=== PATIENT | female | born 1935 | race Two or more races ===

== ENCOUNTER 2024-05-19 13:47 | Emergency (ER) | payer OTHER ==
[~2024-05-19] VITALS: Ht 154.9 cm; Wt 59.0 kg
[2024-05-19] MEDS ORDERED: TIROSINT13 MCG (15:10)
[2024-05-19] MEDS ORDERED: GLUMETZA500 MG (15:10)
[2024-05-19] MEDS ORDERED: SIMVASTATIN5 MG (15:11)
[2024-05-19 17:52] LABS: HEMATOCRIT 29.1 % (36.0-45.00); HEMOGLOBIN 9.4 g/dL (12.0-15.00); MEAN CELL VOLUME 82.8 fL (80.00-100.00); MEAN CORPUSCULAR HEMOGLOBIN 26.7 pg (27.00-32.0); MEAN CORPUSCULAR HGB CONC 32.2 g/dl (32.0-36.0); PLATELET COUNT 403 K/uL (150-450); RED BLOOD COUNT 3.52 M/uL (4.00-6.00); RED CELL DISTRIBUTION WIDTH 18.1 % (11.5-14.5)
[2024-05-19 18:13] LABS: INR 1.06; PARTIAL THROMBOPLASTIN TIME 26.9 SECONDS (22.0-34.0); PROTHROMBIN TIME 11.1 SECONDS (9.0-11.5)
[2024-05-19 18:43] LABS: CALCIUM 9.3 mg/dL (8.5-10.1); CREATININE SERUM 0.96 mg/dL (0.55-1.02); GFR 55.11
[2024-05-19 18:48] LABS: POTASSIUM 4.79 mEq/L (3.5-5.1)
== END 2024-05-19 20:33 | disposition home or self-care (01) ==
LOC: ER 13:48
PROVIDERS: General Practice
DX: D64.9 Anemia, unspecified (principal); E11.9 Type 2 diabetes mellitus without complications; Z79.84 Long term (current) use of oral hypoglycemic drugs; I10 Essential (primary) hypertension; E03.9 Hypothyroidism, unspecified